=== PATIENT | male | born 1970 | race Caucasian/White ===

== ENCOUNTER → 2024-02-22 06:53 | Outpatient (REF) | payer OTHER, SELFPAY ==
[2024-02-22 09:47] LABS: ALT (SGPT) 19 U/L (0-50); AST (SGOT) 21 U/L (17-59); Albumin 4.5 g/dl (3.5-5.0); Alkaline Phosphatase 130 U/L (38-126); Blood Urea Nitrogen 30 mg/dl (9-20); Calcium 10.2 mg/dl (8.4-10.2); Carbon Dioxide 25 mmol/L (22-30); Chloride 99 mmol/L (98-107); Glucose 291 mg/dl (70-99); HDL Cholesterol 55 mg/dl; LDL Cholesterol, Calculated 182 mg/dl; Potassium 5.2 mmol/L (3.5-5.1); Sodium 137 mmol/L (135-145); Total Bilirubin 0.6 mg/dl (0.2-1.3); Total Cholesterol 289 mg/dl (50-199); Total Protein 7.1 g/dl (6.3-8.2); Triglyceride 262 mg/dl (10-149); Very Low Density Lipoprotein 52 mg/dl (0-30); eGFR > 60.00
== END ==
LOC: REG 06:53
PROVIDERS: ATTENDING PHYSICIAN Internal Medicine Cardiovascular Disease; FAMILY PHYSICIAN Family Medicine
DX: I50.21 Acute systolic (congestive) heart failure (principal)
CPT/HCPCS: 36415; 80053; 80061

== ENCOUNTER → 2024-03-24 09:00 | Outpatient (REF) | payer OTHER, SELFPAY | LOC: RCS 09:00 | PROVIDERS: ATTENDING PHYSICIAN Internal Medicine Cardiovascular Disease; FAMILY PHYSICIAN Family Medicine | DX: I50.21 Acute systolic (congestive) heart failure (principal) | CPT/HCPCS: 93306 ==

== ENCOUNTER → 2024-10-23 08:49 | Outpatient (REF) | payer OTHER, SELFPAY | LOC: DHVS 08:49 | PROVIDERS: ATTENDING PHYSICIAN Physician Assistant | DX: I73.9 Peripheral vascular disease, unspecified (principal) | CPT/HCPCS: 93922; 93925 ==

== ENCOUNTER 2024-12-18 18:05 | Emergency (ER) | payer OTHER, SELFPAY ==
[2024-12-18 18:07] VITALS: BP 131/90
[2024-12-18 18:23] LABS: % Basophils 0.3 % (0-2); % Eosinophils 2.4 % (0-6); % Immature Granulocytes 0.3 % (0-0.5); % Lymphocytes 18.7 % (20.5-51.1); % Monocytes 10.1 % (1.7-9.3); % Neutrophils 68.2 % (42.2-75.2); Absolute Eosinophils 0.2 10^3/uL (0-0.7); Absolute Lymphocytes 1.6 10^3/uL (1.2-3.4); Absolute Monocytes 0.9 10^3/uL (0.1-0.6); Absolute Neutrophils 5.9 10^3/uL (1.4-6.5); Hematocrit 35.5 % (39.0-52.0); Hemoglobin 11.3 g/dL (13.0-18.0); Mean Corp Hgb Conc. 31.8 g/dL (33.0-37.0); Mean Corpuscular Hgb 27.3 pg (27.0-31.0); Mean Corpuscular Volume 85.7 fL (80.0-94.0); Mean Platelet Volume 12.4 fL (7.4-10.4); Nucleated Red Blood Cells % 0 % (-); Platelet Count 177 10^3/uL (130-400); Red Blood Cell Count 4.14 10^6/uL (4.70-6.10); Red Cell Dist. Width 13.2 % (11.5-14.5); White Blood Cell Count 8.6 10^3/uL (4.8-10.8)
[2024-12-18 18:50] LABS: ALT (SGPT) 23 U/L (0-50); AST (SGOT) 23 U/L (17-59); Albumin 4.2 g/dl (3.5-5.0); Alkaline Phosphatase 140 U/L (38-126); Blood Urea Nitrogen 21 mg/dl (9-20); Carbon Dioxide 26 mmol/L (22-30); Chloride 99 mmol/L (98-107); Glucose 285 mg/dl (70-99); Potassium 4.3 mmol/L (3.5-5.1); Sodium 134 mmol/L (135-145); Total Bilirubin 0.9 mg/dl (0.2-1.3); Total Protein 6.4 g/dl (6.3-8.2); eGFR > 60.00
[2024-12-18 20:05] VITALS: BP 148/98
[2024-12-18 20:42] VITALS: BMI 24.8
[2024-12-18 20:46] VITALS: BP 146/102
[2024-12-18 20:48] VITALS: BP 147/100
--- NOTE | 2024-12-18 20:57 | ED.GENMED ---
History of Present Illness
General
Chief Complaint: Swelling
Time Seen by Provider: 12/18/24 20:57
History of Present Illness
History of Present Illness:
TIME OF INITIAL ENCOUNTER: 9 PM
HPI: Patient presents due to pain at the right groin associated with a lump. He did not have any vomiting. He had no fevers. He has never had any issues like this before. He thought maybe the swelling could be related to history of CHF.
EXAM:
GENERAL: Well appearing in no distress
HEENT: Moist oral mucosa
CARDIOVASCULAR: No murmurs, normal heart rate, regular rhythm, No chest wall tenderness
PULMONARY: No respiratory distress, breath sounds are clear and equal
ABDOMEN: Soft with no peritoneal signs, no tenderness, there is a moderate-sized/tennis ball sized soft right inguinal hernia
NEUROLOGIC: Excellent strength all extremities, no coordination deficits
PSYCHIATRIC: Appropriate mental status, normal insight and judgement
EXTREMITIES: Nontender, no edema, moves all extremities equally
SKIN: No rash, no lesions
NUMBER AND COMPLEXITY OF PROBLEMS ADDRESSED AT THE ENCOUNTER
� Chronic conditions affecting care: Cardiomyopathy, CHF, CAD, high blood pressure, IDDM
� Acute Exacerbation and/or Progression of Chronic Illness: This is an acute problem
� Differential Diagnosis includes: Inguinal hernia, incarcerated hernia, bowel obstruction
AMOUNT AND/OR COMPLEXITY OF DATA TO BE REVIEWED AND ANALYZED
� I performed an independent evaluation of and my interpretation is:
EKG:
CT:
X-rays:
Laboratory Studies: White count 8.6, hemoglobin 11.3, chemistries relatively unremarkable however glucose is 285,
Other:
� Review of other/old records: I reviewed records, the patient does have CAD/CHF and is a diabetic
� Clinical information was obtained by an independent historian: I spoke to at bedside
� Prescriptions/Medications Considered but not given:
� Further testing considered but not performed:
RISK OF COMPLICATIONS AND/OR MORBIDITY OR MORTALITY OF PATIENT MANAGEMENT
� Social determinants of health affecting care: Lives at home
� Discussion with other providers: I notified Dr. Lutz of patient's presentation�may be difficult to see him in the office due to lack of availability�I informed patient to try to see any general surgeon in the near future.
� Escalation of care including admission/observation vs risk of discharge considered: The patient does have evidence of a right inguinal hernia on exam. He did have tenderness to palpation during the reduction but I was able to
successfully reduce the hernia. I had him lay flat and also we put ice to the affected area.
ANY OTHER UPDATES:
10:10 PM: After successful reduction of hernia, the patient laid flat and no further recurrence.
Past History
Past History
ED Past Medical History: Arrthythmia (Nonsustained ventricular tachycardia), CAD, CHF (Cardiomyopathy, EF of 15-20%.), HTN, Hypercholesterolemia and IDDM
ED Past Surgical History: Cardiac (2 vessel CABG 2008; PTCA with stent 2011) and Orthopedic
Social History
Tobacco: Non-smoker
Alcohol: Occasional
Drug: None
Personal:
Living: with family
Employment: Employed
Family History
Family History: Other (Noncontributory)
Phy Exam
Physical Exam
Physical Exam:
See HPI
Scores
Heart Failure Risk
Heart Failure Risk Score: Not Applicable
Course
Orders/Labs/Results
Orders:
Orders
12/18/24 18:17
Complete Blood Count/With Diff Urgent
Comprehensive Metabolic Panel Urgent
12/18/24 20:49
Pro-BNP [NT-proBNP] Urgent
Abnormal Lab Results
12/18/24
18:17
RBC 4.14 L 10^6/uL
(4.70-6.10)
Hgb 11.3 L g/dL
(13.0-18.0)
Hct 35.5 L %
(39.0-52.0)
MCHC 31.8 L g/dL
(33.0-37.0)
MPV 12.4 H fL
(7.4-10.4)
Absolute Monos (auto) 0.9 H 10^3/uL
(0.1-0.6)
Lymphocytes % 18.7 L %
(20.5-51.1)
Monocytes % 10.1 H %
(1.7-9.3)
Sodium 134 L mmol/L
(135-145)
BUN 21 H mg/dl
(9-20)
Glucose 285 H mg/dl
(70-99)
Alkaline Phosphatase 140 H U/L
(38-126)
12/18/24 18:17
12/18/24 18:17
Vital Signs
Initial and Last Documented VS:
Initial Vital Signs
Temp Pulse Resp BP Pulse Ox
36.7 C 107 16 131/90 100
12/18/24 18:07 12/18/24 18:07 12/18/24 18:07 12/18/24 18:07 12/18/24 18:07
Last Documented Vital Signs
Temp Pulse Resp BP Pulse Ox
36.7 C 102 10 141/99 97
12/18/24 20:05 12/18/24 22:00 12/18/24 22:00 12/18/24 22:00 12/18/24 22:00
Procedures
Other
Indication for procedure:: Right inguinal hernia
Procedure completed by: Me, Dr. Whitmore
Consent form signed: No
Additional Procedure:
Right inguinal hernia reduction note: I placed the patient flat and with just minor difficulty and increased pain to the patient, I did successfully reduce the hernia. He continued to lay flat and I also placed ice to the affected area.
*Critical Care Note
Total Time (30-74mins, 75-104mins- exclusive of procedures): Not Applicable
ED Attending Note
-
Portions of this chart may have been created with voice recognition software.� Occasional wrong word or��sound alike� substitutions may have occurred due to the inherent limitations of voice recognition software.
Discharge Plan
Departure
Patient Disposition: Home (Routine Discharge)
Date of Disposition: 12/18/24
Time of Disposition: 22:03
Patient with high blood pressure during this ER visit?: Yes
Discharge Problem:
Inguinal hernia
Prescriptions:
No Action
atorvastatin 40 MG tablet
40 mg PO QPM
montelukast 10 MG tablet
10 mg PO QPM
lisinopril 2.5 MG tablet
2.5 mg PO QPM
aspirin 81 MG tablet,chewable
81 mg PO QPM
clopidogrel 75 MG tablet
75 mg PO QPM
Farxiga 10 MG tablet
10 mg PO QPM
carvedilol 12.5 MG tablet
12.5 mg PO BID
furosemide 40 MG tablet
40 mg PO DAILY
acetaminophen 325 MG tablet
650 mg PO Q4HPRN PRN (Reason: mild pain/AMOS/temp> 100.4F) 0RF
insulin glargine [Basaglar KwikPen U-100 Insulin] 100 UNIT/ML insulin pen
14 unit SC QPM Qty: 10 0RF
Fiasp FlexTouch U-100 Insulin 100 UNIT/ML insulin pen
7 unit SQ AC Qty: 10 0RF
Patient Comments:
01/07/22: Pt reports not using short-acting insulin often due to 'blood sugar being ok' when testing before meals
Referrals:
Ravin Pérez MD [Family Provider] -
Edgar Lutz MD [Active] - Next open appointment
Stand Alone Forms: Return to Work
Activity Restrictions/Additional Instructions:
Based on your physical examination, you have a right inguinal hernia. I was able to reduce this. If this comes out again, I recommend that you lay flat and put ice over the affected area. If it stays out and is causing pain, then return here. I
did notify Dr. Lutz, the on-call surgeon�you should follow-up with a surgeon.
Interventions
Interventions:
*Risk Screen - Suicide Last Done: 12/18/24 18:07
*General Assessment Last Done: 12/18/24 18:07
*Neglect/Abuse Screening Last Done: 12/18/24 18:07
ED- Fall Risk Assessment Last Done: 12/18/24 20:32
*ED COVID-19 Vaccine History Last Done: 12/18/24 18:07
*Nursing Disposition Last Done: 12/18/24 22:11
ED- Cardiac Assessment Last Done: 12/18/24 20:42
ED- Pulmonary Assessment Last Done: 12/18/24 20:42
ED-Skin Assessment Last Done: 12/18/24 20:42
Discharge Date and Time
Discharge Date/Time: 12/18/24 22:14
Print Language: [place]
[2024-12-18 21:00] VITALS: BP 132/93
[2024-12-18 21:20] LABS: NT-proBNP 2430 pg/ml
[2024-12-18 22:00] VITALS: BP 141/99
== END 2024-12-18 22:14 | disposition home or self-care (01) ==
LOC: EMR 18:05
PROVIDERS: Student in an Organized Health Care Education/Training Program; EMERGENCY PHYSICIAN Emergency Medicine; FAMILY PHYSICIAN Family Medicine
DX: K40.90 Unilateral inguinal hernia, without obstruction or gangrene, not specified as recurrent (principal); I11.0 Hypertensive heart disease with heart failure; I50.9 Heart failure, unspecified
CPT/HCPCS: 99283; 80053; 83880; 85025